=== PATIENT | female | born 1985 | race Caucasian/White ===

== ENCOUNTER 2016-08-27 03:54 | Inpatient (IN) | payer OTHER ==
[~2016-08-27] VITALS: Ht 157.5 cm; Wt 67.8 kg
[2016-08-27] VITALS (44 sets, daily range): BP systolic 88–136; BP diastolic 43–80
[~2016-08-27 03:54] MED LIST: BENZ56AE TP; CODE-54 PO; DCS100C PO; FERR325C PO; FRS325T PO; Ibuprofen PO; PNV1CAPS13 PO
[2016-08-27 04:44] LABS: BASOPHILS % (AUTO) 0 % (0-10); EOSINOPHILS # (AUTO) 0.2 10^3/uL (0.0-0.3); EOSINOPHILS % (AUTO) 2 % (0-10); LYMPHOCYTES # (AUTO) 2.1 X 10^3 (1.0-4.0); LYMPHOCYTES % (AUTO) 23 % (12-44); MEAN CORPUSCULAR HEMOGLOBIN 24 PG (25-34); MEAN CORPUSCULAR HGB CONC 32 G/DL (32-36); MEAN CORPUSCULAR VOLUME 77 FL (80-99); MEAN PLATELET VOLUME 10.7 FL (7.4-10.4); MONOCYTES # (AUTO) 0.6 X 10^3 (0.0-1.0); MONOCYTES % (AUTO) 6 % (0-12); NEUTROPHILS # (AUTO) 6.3 X 10^3 (1.8-7.8); NEUTROPHILS % (AUTO) 69 % (42-75); PLATELET COUNT 174 10^3/uL (130-400); RED BLOOD COUNT 3.81 10^6/uL (4.35-5.85); RED CELL DISTRIBUTION WIDTH 15.4 % (10.0-14.5); WHITE BLOOD COUNT 9.1 10^3/uL (4.3-11.0)
[2016-08-27] MEDS: D5 LR IV SOLUTION 1,000 ML IV SCH ×2 (04:44→12:21)
[2016-08-27] MEDS ORDERED: metroNIDAZOLE 500 MG (FLAGYL) TAB PO ONE (05:45)
[2016-08-27] MEDS ORDERED: CATHETER FLUSH 10 ML SYR IV SCH ×2 (06:00→14:00)
[2016-08-27] MEDS ORDERED: LACTATED RINGERS 1,000 ML IV ONE (08:59)
[2016-08-27] MEDS ORDERED: SUFENTA 0.6MCG/ML BUPIVA 0.125 100 ML ONE (09:04)
[2016-08-27] MEDS ORDERED: MINERAL OIL CONCENTRATE 99.9% 15 ML UDC ONE (09:05)
[2016-08-27] MEDS ORDERED: LIDOCAINE/EPI 1%-1:200,000 (XYLOCAINE) 30 ML VIAL ONE (09:05)
[2016-08-27] MEDS ORDERED: EPIDURAL (SUFENTA 0.6MCG/ML BUPIVA 0.125%) 100 ML BAG EPI SCH (10:15)
[2016-08-27] MEDS ORDERED: METOCLOPRAMIDE INJ 10 MG/2 ML (REGLAN) IV PRN (10:15)
[2016-08-27] MEDS ORDERED: NALOXONE 0.4 MG/ML 1 ML (NARCAN) VIAL IV PRN ×2 (10:15)
[2016-08-27] MEDS ORDERED: ONDANSETRON 4 MG/2 ML (SDV) Z0FRAN IV PRN (10:15)
[2016-08-27] MEDS ORDERED: diphenhydrAMINE 50 MG/ML INJ (BENADRYL) IV PRN (10:15)
[2016-08-27] MEDS ORDERED: OXYTOCIN/NORMAL SALINE 500 ML IV SCH ×2 (11:26→13:21)
--- NOTE | 2016-08-27 12:43 | History & Physical-OB ---
OB - Chief Complaint & HPI Date/Time Date of Admission: Date of Admission: Aug 27, 2016 at 4:18 am Time Seen by Provider: 08:20 Chief Complaint/History OB-Reason for Admission/Chief: Rupture of Membranes Hx : 4 Hx Para: 2 Expected Date of Delivery: Sep 07, 2016 Gestational Age in Weeks: 38 Gestational Age in Days: 3 Admission Nurse Assessment Rev: Yes History of Labs A pos Antibody + (cold autoantibody) RI RPR NR HBsAg NR HIV NR GC neg GBS neg +Quad screen for T21, Negative FFC DNA Allergies and Home Medications Allergies Coded Allergies: Penicillins (Verified Allergy, Unknown, 12/13/09) Home Medications Ferrous Sulfate 325 Mg Tab, 325 MG PO DAILY@0700, #30 Ref 2 Prescribed by: JOAQUIN GUZMAN on 10/10/13 0919 Pnv Comb.no58/Iron Bisgly/Fa 1 Each Capsule, 1 EACH PO, (Reported) OB - History Hx of Present Care: Yes Ultrasounds: Normal mid trimester US Obstetrical Complications: Other (Abn Quad) Medical Complications: None Obstetrical History Hx Termination: No Hx Multiple Gestation: No Hx Stillbirth: No Hx Complication: No Hx Induced Hypertens: No Hx Maternal Gestational Diabet: No Delivery History Hx Dystocia: No Hx Large For Gestational Age I: No Hx Small for Gestational Age I: No Hx Section: No Hx Vaginal Delivery Post C-Sec: No Hx Blood Disorders: No Adverse Rxn to Tranfusion: No Patient Past Medical History Hx of asthma but no episodes in past 6-12 months Social History/Family History HIV/AIDS: No Recent Infectious Disease Expo: No Sexually Transmitted Disease: No Alcohol Use: Denies Use Recreational Drug Use: No Immunizations Hepatitis A: Yes Hepatitis B: Yes Tetanus Booster (TDap): Less than 5yrs OB - Admission Exam Physical Exam Date Seen by Provider: Aug 27, 2016 Time Seen by Provider: 08:20 Vitals: Vital Signs 08/27/16 08/27/16 07:30 08:00 Temp 98.3 Pulse 82 Resp 18 B/P (MAP) 106/60 Pulse Ox 98 O2 Delivery Room Air HEENT: NCAT Heart: Rhythm Normal Lungs: Clear Abdomen: Gravid Extremities: Normal Reflexes: Normal Cervical Dilatation: 4cm Effacement: 75% Station: -1 Membranes: Ruptured Amniotic Fluid: Clear Heart Rate: 130's Accelerations: Accelerations Present Decelerations: No Decelerations Short Term Variability: Present Group Home Variability: Average (6-25) Contractions on Admission: < 5 Minutes Apart Intensity: Moderate Labs Laboratory Tests Test 08/27/16 04:30 Range/Units White Blood Count 9.1 4.3-11.0 10^3/uL Red Blood Count 3.81 L 4.35-5.85 10^6/uL Hemoglobin 9.3 L 11.5-16.0 G/DL Hematocrit 29 L 35-52 % Mean Corpuscular Volume 77 L 80-99 FL Mean Corpuscular Hemoglobin 24 L 25-34 PG Mean Corpuscular Hemoglobin Concent 32 32-36 G/DL Red Cell Distribution Width 15.4 H 10.0-14.5 % Platelet Count 174 130-400 10^3/uL Mean Platelet Volume 10.7 H 7.4-10.4 FL Neutrophils (%) (Auto) 69 42-75 % Lymphocytes (%) (Auto) 23 12-44 % Monocytes (%) (Auto) 6 0-12 % Eosinophils (%) (Auto) 2 0-10 % Basophils (%) (Auto) 0 0-10 % Neutrophils # (Auto) 6.3 1.8-7.8 X 10^3 Lymphocytes # (Auto) 2.1 1.0-4.0 X 10^3 Monocytes # (Auto) 0.6 0.0-1.0 X 10^3 Eosinophils # (Auto) 0.2 0.0-0.3 10^3/uL Basophils # (Auto) 0.0 0.0-0.1 10^3/uL OB - Assessment/Plan/Diagnosis Assessment Assessment: active labor, rupture of membranes Plan Plan: Expectant Management Discharge Diagnosis Diagnosis: 30 yo @ 38.3 weeks SROM Active labor GBS neg Cold autoantibody + Hx of asthma -controlled JOAQUIN GUZMAN DO Aug 27, 2016 12:43 pm
--- NOTE | 2016-08-27 13:21 | OB Labor & Delivery Record ---
L&D History Date of Service Date of Service: Aug 27, 2016 History Expected Date of Delivery: Sep 07, 2016 Gestational Age in Weeks: 38 Hx : 4 Hx Para: 2 Complications Events: Routine care Operative Indications (Cesarea: N/A-Vaginal Delivery Intrapartal Events: None L&D Stage1 Stage One Onset of Labor - Date: Aug 27, 2016 Monitors and Tracing Monitor Mode: External Heart Rate: 125 Monitor Accelerations: Uniform Monitor Decelerations: Variable Station: -2 Fci Variability: Average (6-10) Presentation: Vertex Vital Signs VS - Last 72 Hours, by Label 08/27/16 08/27/16 08/27/16 04:06 07:30 08:00 Temp 97.1 98.3 Pulse 72 86 82 Resp 18 18 18 B/P (MAP) 118/58 117/62 106/60 Pulse Ox 98 O2 Delivery Room Air Room Air Room Air Rupture of Membranes Spontaneous Ruture of Membrane: Yes Amniotic Membrane Rupture Time: 0200 Amniotic Membrane Fluid Desc.: Clear Amniotic Fluid Membrane Tests: Nitrazine Positive Vaginal Bleeding Description: Normal Show Induction/Anesthesia Epidural Cath Placement - Time: 09 Progress/Notes Protraction of active labor occurred at 5 cm dilatation, 2 mu/min pitocin started at that time with resumption of normal labor progression. L&D Stage2 Stage Two Stage II Date: Aug 27, 2016 Monitors and Tracing Monitor Mode: External Heart Rate: 125 Monitor Accelerations: Uniform Monitor Decelerations: Early Donor Services Specialist Variability: Average (6-10) Short Term Variability: Present Position: Right Occiput Anterior Presentation: Vertex Cord Descript/Complications Cord Vessel Description: 3 Vessels Delivery Type Delivery Method: Spontaneous Vaginal Anterior Shoulder: Right Episiotomy/Perineal Laceration Laceraction(s)/Extensions: No Degree (describe repair) prolapse of the cervix to the vaginal introitus noted after delivery of placenta , bleeder noted from 12 o'clock, bleeding quite vigorously and ligated using a 3 -0 rapide sutures. Condition of Delivery 1 minute Comment: 8 5 minute Comment: 9 Notes Live female infant weight 8lbs 2 oz Condition of Condition of : Living Exam: No Observed Abnormalities Resuscitation Resuscitation: N/A - Spontaneous Resp L&D Stage3 Stage Three Stage III Date: Aug 27, 2016 Stage III Time: 13:10 Pictocin Pitocin Administration Comment: wide open 30 mu at delivery of placenta Placenta Delivery Placenta Delivery: Spontaneous Delivery Summary Summary blood loss >1000ml: No Vaginal blood loss >500ml: No 350 mL Attending at delivery: Joaquin Guzman DO Condition of Delivery Examined: Cervix Examined, Uterus Explored Post Hemorrhage: No Condition of Mother stable Condition of (s) stable JOAQUIN GUZMAN DO Aug 27, 2016 1:21 pm
--- NOTE | 2016-08-27 13:23 | Discharge Inst-Women's Service ---
Discharge Inst-Women's Serv Depart Medication/Instructions New, Converted or Re-Newed RX: RX on Chart Consults/Follow Up Additional Follow Up: Yes Activity Activity: Activity as Tolerated Driving Instructions: No Driving for 1 Week NO SMOKING: NO SMOKING Nothing Inside Vagina: No Douching, No [place], No Tampons Diet Discharge Diet: No Restrictions Symptoms to Report to : Bleeding Excessive, Pain Increased, Fever Over 101 Degrees F, Vaginal Bleeding Increase, Questions/Concerns For Any Problems or Questions: Contact Your Physician Skin/Wound Care Bathing Instructions: Shower (x 2-3 weeks) JOAQUIN GUZMAN DO Aug 27, 2016 1:23 pm
[2016-08-27] MEDS ORDERED: ACET-789 PO (13:25)
[2016-08-27] MEDS ORDERED: IBUP-1773 PO (13:25)
[2016-08-27] MEDS ORDERED: DOCU-143 PO (13:25)
[2016-08-27] MEDS ORDERED: WITCH HAZEL(TUCKS) 40 EA JAR TOP PRN (13:30)
[2016-08-27] MEDS ORDERED: TETANUS,DIPTH,PERTUSS P/F (BOOSTRIX) 0.5 ML VIAL IM ONE (13:30)
[2016-08-27] MEDS ORDERED: MEASLES,MUMPS,RUBELLA 1 EA INJ SQ ONE (13:30)
[2016-08-27] MEDS ORDERED: DIBUCAINE (NUPERCAINAL) 1% OINT 30 GM TOP PRN (13:30)
[2016-08-27] MEDS ORDERED: APAP 300 MG/CODEINE 30 MG (TYLENOL #3) TAB PO PRN (13:30)
[2016-08-27] MEDS ORDERED: BENZOCAINE/MENTHOL (DERMOPLAST) 56 ML CAN TP PRN (13:30)
[2016-08-27] MEDS: IBUPROFEN 600 MG (MOTRIN) TAB PO SCH ×2 (14:41→21:10)
[2016-08-28] MEDS: IBUPROFEN 600 MG (MOTRIN) TAB PO SCH ×3 (02:59→20:12)
[2016-08-28 03:10] VITALS: BP 104/55
[2016-08-28 07:02] LABS: BASOPHILS % (AUTO) 0 % (0-10); EOSINOPHILS # (AUTO) 0.2 10^3/uL (0.0-0.3); EOSINOPHILS % (AUTO) 2 % (0-10); LYMPHOCYTES # (AUTO) 2.1 X 10^3 (1.0-4.0); LYMPHOCYTES % (AUTO) 18 % (12-44); MEAN CORPUSCULAR HEMOGLOBIN 24 PG (25-34); MEAN CORPUSCULAR HGB CONC 31 G/DL (32-36); MEAN CORPUSCULAR VOLUME 78 FL (80-99); MONOCYTES # (AUTO) 0.7 X 10^3 (0.0-1.0); MONOCYTES % (AUTO) 6 % (0-12); NEUTROPHILS # (AUTO) 8.6 X 10^3 (1.8-7.8); NEUTROPHILS % (AUTO) 74 % (42-75); PLATELET COUNT 146 10^3/uL (130-400); RED CELL DISTRIBUTION WIDTH 15.3 % (10.0-14.5); WHITE BLOOD COUNT 11.6 10^3/uL (4.3-11.0)
--- NOTE | 2016-08-28 08:32 | Progress Note-Standard ---
Standard Progress Note Progress Notes/Assess & Plan Date Seen by Provider: Aug 28, 2016 Time Seen by Provider: 08:22 Progress/Assessment & Plan Patient doing well, no concerns voiced this am. Denies lightheadedness/ dizzyness on ambulation. Lochia light. Pain well controlled. Ambulating and voiding freely. Vital Sign - Last 24 Hours 08/27/16 08/27/16 08/27/16 08/27/16 09:00 09:30 09:55 09:58 Temp 97.9 Pulse 85 81 82 82 Resp 18 18 18 18 B/P (MAP) 106/57 112/61 113/55 116/59 Pulse Ox 98 100 O2 Delivery Room Air Room Air Room Air Room Air 08/27/16 08/27/16 08/27/16 08/27/16 10:01 10:04 10:07 10:10 Pulse 71 81 86 91 Resp 18 18 18 18 B/P (MAP) 121/58 108/64 117/66 126/70 Pulse Ox 100 100 98 98 O2 Delivery Room Air Room Air Room Air Room Air 08/27/16 08/27/16 08/27/16 08/27/16 10:13 10:16 10:19 10:22 Pulse 77 84 85 80 Resp 18 18 18 18 B/P (MAP) 117/58 117/59 116/56 111/62 Pulse Ox 98 99 99 99 O2 Delivery Room Air Room Air Room Air Room Air 08/27/16 08/27/16 08/27/16 08/27/16 10:25 10:28 10:33 10:40 Pulse 79 90 78 87 Resp 18 18 18 18 B/P (MAP) 111/58 136/61 130/80 120/68 Pulse Ox 99 99 100 99 O2 Delivery Room Air Room Air Room Air Room Air 08/27/16 08/27/16 08/27/16 08/27/16 10:45 11:00 11:15 11:30 Temp 98.0 Pulse 82 78 81 83 Resp 18 18 18 18 B/P (MAP) 129/72 122/61 122/56 114/59 Pulse Ox 98 97 97 98 O2 Delivery Room Air Room Air Room Air Room Air 08/27/16 08/27/16 08/27/16 08/27/16 11:45 12:00 12:15 12:18 Temp 97.8 Pulse 104 97 81 78 Resp 18 18 18 18 B/P (MAP) 108/56 118/58 88/43 112/55 Pulse Ox 98 98 99 99 O2 Delivery Room Air Room Air Room Air Room Air 08/27/16 08/27/16 08/27/16 08/27/16 12:30 12:45 13:00 13:15 Pulse 69 78 86 86 Resp 18 18 18 18 B/P (MAP) 95/52 99/58 122/64 119/64 Pulse Ox 99 98 98 O2 Delivery Room Air Room Air Room Air Room Air 08/27/16 08/27/16 08/27/16 08/27/16 13:30 13:45 14:00 14:15 Temp 98.4 Pulse 80 81 81 71 Resp 18 18 18 18 B/P (MAP) 117/58 120/55 112/55 112/58 O2 Delivery Room Air Room Air Room Air Room Air 08/27/16 08/27/16 08/27/16 08/27/16 14:30 14:45 15:00 15:15 Pulse 74 78 86 83 Resp 18 18 18 18 B/P (MAP) 111/61 108/65 113/58 114/64 O2 Delivery Room Air Room Air Room Air Room Air 08/27/16 08/27/16 08/27/16 08/27/16 15:30 16:30 19:50 23:42 Temp 97.6 98.4 98.0 97.8 Pulse 83 78 81 79 Resp 18 18 18 18 B/P (MAP) 105/68 107/64 115/67 112/66 Pulse Ox 99 98 97 O2 Delivery Room Air Room Air Room Air Room Air 08/28/16 03:10 Temp 96.8 Pulse 66 Resp 16 B/P (MAP) 104/55 O2 Delivery Room Air Intake and Output 08/27/16 08/27/16 08/28/16 15:00 23:00 07:00 Intake Total 3140 ml Output Total 1100 ml Balance 2040 ml Laboratory Tests Test 08/28/16 06:34 Range/Units White Blood Count 11.6 H 4.3-11.0 10^3/uL Red Blood Count 3.40 L 4.35-5.85 10^6/uL Hemoglobin 8.3 L 11.5-16.0 G/DL Hematocrit 27 L 35-52 % Mean Corpuscular Volume 78 L 80-99 FL Mean Corpuscular Hemoglobin 24 L 25-34 PG Mean Corpuscular Hemoglobin Concent 31 L 32-36 G/DL Red Cell Distribution Width 15.3 H 10.0-14.5 % Platelet Count 146 130-400 10^3/uL Mean Platelet Volume 11.0 H 7.4-10.4 FL Neutrophils (%) (Auto) 74 42-75 % Lymphocytes (%) (Auto) 18 12-44 % Monocytes (%) (Auto) 6 0-12 % Eosinophils (%) (Auto) 2 0-10 % Basophils (%) (Auto) 0 0-10 % Neutrophils # (Auto) 8.6 H 1.8-7.8 X 10^3 Lymphocytes # (Auto) 2.1 1.0-4.0 X 10^3 Monocytes # (Auto) 0.7 0.0-1.0 X 10^3 Eosinophils # (Auto) 0.2 0.0-0.3 10^3/uL Basophils # (Auto) 0.0 0.0-0.1 10^3/uL Uterine fundus, firm and palpated below umbilicus Diagnosis: PPD 1 NVD Acute blood loss anemia superimposed on anemia of P: Replace iron Possible dc later today if continues to do well, and dismissal. JOAQUIN GUZMAN DO Aug 28, 2016 8:32 am
[2016-08-28] MEDS ORDERED: FERR-74 PO (08:33)
[2016-08-28] MEDS ORDERED: FERROUS SULF 325 MG (IRON) TAB PO SCH (09:00)
[2016-08-28 10:00] VITALS: BP 120/71
[2016-08-28] MEDS: FERROUS SULF 325 MG (IRON) TAB PO SCH ×2 (10:55→20:12)
[2016-08-28] MEDS: PRENATAL VITAMIN 1 EA TAB PO SCH (10:55)
[2016-08-28 15:03] VITALS: BP 113/59
[2016-08-28 18:00] VITALS: BP 118/63
[2016-08-28 22:08] VITALS: BP 106/62
--- NOTE | 2016-08-29 00:32 | Progress Note-Standard ---
Standard Progress Note Progress Notes/Assess & Plan Date Seen by Provider: Aug 29, 2016 Time Seen by Provider: 11:20 Progress/Assessment & Plan Patient doing well, no concerns voiced Denies lightheadedness/dizzyness on ambulation. Lochia light. Pain well controlled. Ambulating and voiding freely. Vital Sign - Last 24 Hours 08/28/16 08/28/16 08/28/16 08/29/16 15:03 18:00 22:08 01:47 Temp 97.9 96.6 96.8 96.1 Pulse 70 76 62 66 Resp 18 16 18 16 B/P (MAP) 113/59 118/63 106/62 111/65 Pulse Ox 99 97 98 97 O2 Delivery Room Air Room Air Room Air Room Air 08/29/16 08/29/16 06:22 09:49 Temp 97.0 97.2 Pulse 67 71 Resp 16 18 B/P (MAP) 101/59 101/55 Pulse Ox 97 97 O2 Delivery Room Air Room Air Uterine fundus, firm and palpated below umbilicus Diagnosis: PPD 2 NVD Acute blood loss anemia superimposed on anemia of P: Replace iron DC today JOAQUIN GUZMAN DO Aug 29, 2016 00:32
[2016-08-29 01:47] VITALS: BP 111/65
[2016-08-29] MEDS: IBUPROFEN 600 MG (MOTRIN) TAB PO SCH ×2 (02:02→09:52)
[2016-08-29] MEDS: PRENATAL VITAMIN 1 EA TAB PO SCH (06:17)
[2016-08-29 06:22] VITALS: BP 101/59
[2016-08-29 09:49] VITALS: BP 101/55
[2016-08-29] MEDS: FERROUS SULF 325 MG (IRON) TAB PO SCH (09:52)
--- NOTE | 2016-08-29 10:28 | Anesthesia-Regional Post-Op ---
Regional Patient Condition Mental Status: Alert, Oriented x3 Circulation: Same as Pre-Op Headache: Absent Sensation: Full Recovery Motor Block: Absent Post Op Complications Complications None Follow Up Care/Instructions Patient Instructions None needed. Anesthesia/Patient Condition Patient is doing well, no complaints, stable vital signs, no apparent adverse anesthesia problems. No complications reported per nursing. LUIS FERNANDO THOMAS CRNA Aug 29, 2016 10:28
[2016-08-29] MEDS ORDERED: TETANUS,DIPTH,PERTUSS P/F (BOOSTRIX) 0.5 ML VIAL IM ONE (12:02)
== END 2016-08-29 12:55 | disposition home or self-care (01) | DRG 775 ==
LOC: WSo 03:54 → LDRP 03:54 → WSo 04:18 → LDRP 04:18
PROVIDERS: ADMIT Obstetrics & Gynecology; ATTEND Obstetrics & Gynecology
PROC: 10E0XZZ Delivery of Products of Conception, External Approach (ICD-10-PCS; principal; 2016-08-27)
DX: O34.523 Maternal care for prolapse of gravid uterus, third trimester (principal); O90.81 Anemia of the puerperium; O99.02 Anemia complicating childbirth; Z37.0 Single live birth; Z3A.38 38 weeks gestation of pregnancy
CPT/HCPCS: 36415; 85025; 86850; 86900; 86901; 90715; 99212

== ENCOUNTER 2019-11-04 05:39 | Outpatient (CLI) | payer OTHER ==
[~2019-11-04] VITALS: Ht 157 cm; Wt 54.5 kg
[~2019-11-04 05:39] MED LIST changes: +ACET-789 PO; +DOCU-143 PO; +FERR325T18 PO; +IBUP-1773 PO
== END 2019-11-04 14:48 ==
LOC: PREOP 05:39
PROVIDERS: ATTEND Surgery
DX: Z01.818 Encounter for other preprocedural examination (principal)

== ENCOUNTER 2019-11-11 09:48 | Day surgery (SDC) | payer BC, OTHER ==
[~2019-11-11] VITALS: Ht 157 cm; Wt 54.5 kg
[2019-11-11] VITALS (9 sets, daily range): BP systolic 89–105; BP diastolic 53–65
[2019-11-11] MEDS ORDERED: LACTATED RINGERS 1,000 ML IV ONE (10:01)
[2019-11-11] MEDS ORDERED: MIDAZOLAM 2 MG/2 ML (VERSED) VIAL ONE (10:09)
[2019-11-11] MEDS ORDERED: PROPOFOL INJECTION 50 ML IV ONE (10:09)
[2019-11-11] MEDS ORDERED: LACTATED RINGERS 1,000 ML IV PRN (10:15)
--- NOTE | 2019-11-11 10:40 | Progress Note-Pre Operative ---
Pre-Operative Progress Note H&P Reviewed The H&P was reviewed, patient examined and no changes noted. Date Seen by Provider: Nov 11, 2019 Time Seen by Provider: 10:40 Date H&P Reviewed: Nov 11, 2019 Time H&P Reviewed: 10:40 Pre-Operative Diagnosis: family history colon cancer ALFONZO BOYD DO Nov 11, 2019 10:40
--- NOTE | 2019-11-11 11:12 | Progress Note-Post Operative ---
Post-Operative Progess Note Surgeon (s)/Radarman (s) Surgeon ALFONZO BOYD DO Radarman: na Pre-Operative Diagnosis family history colon cancer Post-Operative Diagnosis normal colon Procedure & Operative Findings Date of Procedure 11/11/19 Procedure Performed/Findings colonoscopy Anesthesia Type per risk assessment consultant Estimated Blood Loss Estimated blood loss (mL): none Specimens/Packing Specimens Removed na ALFONZO BOYD DO Nov 11, 2019 11:12
--- NOTE | 2019-11-11 11:13 | Discharge Inst-Simple/Standard ---
Discharge Inst-Standard Patient Instructions/Follow Up Plan of Care/Instructions/FU: 5 years Monty any issues before then be seen at that time. Activity as Tolerated: Yes Discharge Diet: Regular Diet ALFONZO BOYD DO Nov 11, 2019 11:13
--- NOTE | 2019-11-11 13:51 | Anesthesia-General Post-Op ---
MAC Patient Condition Mental Status/LOC: Same as Preop Cardiovascular: Satisfactory Nausea/Vomiting: Absent Respiratory: Satisfactory Pain: Controlled Complications: Absent Post Op Complications Complications None Follow Up Care/Instructions Patient Instructions None needed. Anesthesiology Discharge Order Discharge Order Patient is doing well, no complaints, stable vital signs, no apparent adverse anesthesia problems. No complications reported per nursing. MARGI DC CRNA Nov 11, 2019 13:51
--- NOTE | 2019-11-11 14:18 | OPERATIVE REPORT ---
DATE OF SERVICE: 11/11/2019 PREOPERATIVE DIAGNOSIS: Family history of colon cancer. POSTOPERATIVE DIAGNOSIS: Normal colon. PROCEDURE PERFORMED: Colonoscopy. SURGEON: Alfonzo Millan DO. ANESTHESIA: Per SERVICE UNIT OPERATOR OIL WELL. ESTIMATED BLOOD LOSS: None. COMPLICATIONS: None. INDICATIONS FOR PROCEDURE: The patient is a 33-year-old female needing colonoscopy due to the family history of colon cancer. She understands the risks and benefits of the procedure and wished to proceed with procedure. Consent was signed in the chart. DESCRIPTION OF PROCEDURE: The patient was taken to the endoscopy suite and placed in the left lateral recumbent position. Timeout was performed. Scope was inserted into the rectum and advanced all the way to cecum with minimal difficulty. Prep was adequate. Scope was then slowly retracted back. There were no polyps, masses or ulcerations within the cecum, ascending, transverse, descending and sigmoid colon. Once in the rectum, scope was retroflexed noting no other pathology. Scope was returned to its normal position and slowly withdrawn until completely removed. The patient tolerated the procedure well without any complications. She was taken to recovery room in stable condition. RECOMMENDATIONS: The patient will need repeat colonoscopy in five years. Any issues before that be seen at that time. Job ID: [id number] DocumentID: [id number] Dictated Date: 11/11/2019 11:24:02 Desk Sergeant Date: 11/11/2019 14:18:07 Dictated By: ALFONZO MILLAN DO
== END 2019-11-11 12:05 | disposition home or self-care (01) ==
LOC: ENDO 09:48
PROVIDERS: ATTEND Surgery
DX: Z12.11 Encounter for screening for malignant neoplasm of colon (principal); Z80.0 Family history of malignant neoplasm of digestive organs; Z88.0 Allergy status to penicillin
CPT/HCPCS: 84703

== ENCOUNTER → 2019-11-11 | Outpatient (CLI) | payer BC ==
[2019-11-11 10:35] LABS: BASOPHILS % (AUTO) 0 % (0-10); EOSINOPHILS # (AUTO) 0.1 10^3/uL (0.0-0.3); EOSINOPHILS % (AUTO) 1 % (0-10); HEMATOCRIT 40 % (35-52); HEMOGLOBIN 14.2 G/DL (11.5-16.0); LYMPHOCYTES # (AUTO) 1.6 X 10^3 (1.0-4.0); LYMPHOCYTES % (AUTO) 26 % (12-44); MEAN CORPUSCULAR HEMOGLOBIN 29 PG (25-34); MEAN CORPUSCULAR HGB CONC 35 G/DL (32-36); MEAN CORPUSCULAR VOLUME 83 FL (80-99); MEAN PLATELET VOLUME 10.9 FL (7.4-10.4); MONOCYTES # (AUTO) 0.4 X 10^3 (0.0-1.0); MONOCYTES % (AUTO) 7 % (0-12); NEUTROPHILS # (AUTO) 3.9 X 10^3 (1.8-7.8); NEUTROPHILS % (AUTO) 66 % (42-75); PLATELET COUNT 198 10^3/uL (130-400); WHITE BLOOD COUNT 5.9 10^3/uL (4.3-11.0)
[2019-11-11 10:51] LABS: ALANINE AMINOTRANSFERASE 15 U/L (0-55); ALBUMIN 4.6 GM/DL (3.2-4.5); ALKALINE PHOSPHATASE 57 U/L (40-136); BILIRUBIN,TOTAL 1.1 MG/DL (0.1-1.0); BUN/CREATININE RATIO 15; CALCIUM 9.6 MG/DL (8.5-10.1); CARBON DIOXIDE 26 MMOL/L (21-32); CHLORIDE 103 MMOL/L (98-107); CHOLESTEROL 153 MG/DL (< 200); GFR ESTIMATED > 60; GLUCOSE 79 MG/DL (70-105); HDL CHOLESTEROL 55 MG/DL (40-60); POTASSIUM 3.4 MMOL/L (3.6-5.0); SODIUM 139 MMOL/L (135-145); TOTAL PROTEIN 7.6 GM/DL (6.4-8.2); TRIGLYCERIDES 51 MG/DL (<150); VLDL CHOLESTEROL 10 MG/DL (5-40)
== END ==
LOC: LAB 09:52
PROVIDERS: ATTEND Obstetrics & Gynecology
DX: Z00.00 Encounter for general adult medical examination without abnormal findings (principal); Z13.1 Encounter for screening for diabetes mellitus; Z13.220 Encounter for screening for lipoid disorders
CPT/HCPCS: 36415; 80053; 80061; 83036; 84443; 85025